=== PATIENT | female | born 1935 | race Caucasian/White ===

== ENCOUNTER → 2017-09-03 | Outpatient (CLI) | payer MEDICARE, OTHER ==
[~2017-09-03] MED LIST: ACIPHEX 20 MG T20 M1; ELAVIL; ESTRACE0.5 MG; IBUPROFEN 800800 MG PO; LORAZEPAM 0.50.5 MG PO; VIIBRYD10 MG PO
--- NOTE | 2017-09-03 15:22 | 2DMMODE ---
[place] [address] 2 D/M-MODE ECHOCARDIOGRAM Name: ASCENCION SANTANA Room: [facility]#: [id number] Admission: 09/03/17 Attend Phys: Shahida Saini, Discharge: Date of : 37 Date of Service: 09/03/17 1522 Report #: [id number] THIS REPORT FOR: //name// APPROVED REPORT Study performed: 09/03/2017 13:14:01 EXAM: Comprehensive 2D, Doppler, and color-flow Echocardiogram Patient Location: Out-Patient Status: routine BSA: 1.86 HR: 62 bpm Other Information Study Quality: Good Indications Aortic Valve Disease 2D Dimensions LVEF(%): 69.37 (>50%) IVSd: 11.56 (7-11mm) LVOT Diam: 20.38 (18-24mm) LVDd: 43.58 mm PWd: 9.98 (7-11mm) Ascending Ao: 24.72 (22-36mm) LVDs: 26.69 (25-40mm) Aortic Root: 28.85 mm Alvarado's LVEF: 69.37 % Volumes Left Atrial Volume (Systole) LA ESV Index: 25.90 mL/m2 Aortic Valve AoV Peak Addy.: 1.06 m/s AO Peak Gr.: 4.46 mmHg LVOT Max P.49 mmHg AO Mean Gr.: 2.22 mmHg LVOT Mean P.86 mmHg LVOT Max V: 0.61 m/s AO V2 VTI: 24.57 cm LVOT Mean V: 0.44 m/s CEDRICK (VTI): 2.00 cm2 LVOT V1 VTI: 15.05 cm AI Collier: 3.11 m/s2 AI PHT: 428.59 [place] [address] 2 D/M-MODE ECHOCARDIOGRAM Name: ASCENCION SANTANA Room: [facility]#: [id number] Admission: 09/03/17 Attend Phys: Shahida Saini, Discharge: Date of : 37 Date of Service: 09/03/17 1522 Report #: [id number] E/A Ratio: 2.20 MV Decel. Time: 165.76 ms MV E Max Addy.: 0.84 m/s MV PHT: 48.07 ms MVA (PHT): 4.58 cm2 TDI E/Lateral E': 7.64 E/Medial E': 7.64 Medial E' Addy.: 0.11 m/s Lateral E' Addy.: 0.11 m/s Pulmonary Valve PV Peak Addy.: 0.73 m/s PV Peak Gr.: 2.15 mmHg Tricuspid Valve TR Peak Gr.: 44.71 mmHg RVSP: 49.71 mmHg Left Ventricle The left ventricle is normal size. There is normal LV segmental wall motion. There is normal left ventricular wall thickness. Left ventricular systolic function is normal. The left ventricular ejection fraction is within the normal range. LVEF is 55-60%. The left ventricular diastolic function is normal. Right Ventricle The right ventricle is normal size. The right ventricular systolic function is normal. Atria The left atrium size is normal. The right atrium size is normal. Aortic Valve Mild aortic valve sclerosis. Mild to moderate aortic regurgitation. There is no aortic valvular stenosis. Mitral Valve The mitral valve is normal in structure. Mild to moderate mitral regurgitation. No evidence of mitral valve stenosis. Tricuspid Valve The tricuspid valve is normal in structure. Moderate tricuspid regurgitation. The RVSP is _49.7 mmHg. Pulmonic Valve The pulmonary valve is normal in structure. [place] [address] 2 D/M-MODE ECHOCARDIOGRAM Name: NEEMA SANTANACHANTEL Waldron Room: [facility]#: [id number] Admission: 09/03/17 Attend Phys: Shahida Saini, Discharge: Date of : 37 Date of Service: 09/03/17 1522 Report #: [id number] regurgitation. Great Vessels The aortic root is normal in size. IVC is normal in size and collapses with >50% inspiration Pericardium There is no pericardial effusion. <Conclusion> The left ventricle is normal size. There is normal left ventricular wall thickness. Left ventricular systolic function is normal. The left ventricular ejection fraction is within the normal range. LVEF is 55-60%. The left ventricular diastolic function is normal. The right ventricle is normal size. The left atrium size is normal. Mild aortic valve sclerosis. Mild to moderate aortic regurgitation. There is no aortic valvular stenosis. The mitral valve is normal in structure. Mild to moderate mitral regurgitation. No evidence of mitral valve stenosis. The tricuspid valve is normal in structure. Moderate tricuspid regurgitation. The RVSP is _49.7 mmHg. IVC is normal in size and collapses with >50% inspiration There is no pericardial effusion. There is normal LV segmental wall motion. <ELECTRONICALLY SIGNED> By: Morgan Abbott MD, FACC 09/03/17 1522 [id number] Morgan Abbott MD, FACC /INF
== END ==
LOC: M.CRD 12:44
DX: I08.3 Combined rheumatic disorders of mitral, aortic and tricuspid valves (principal)

== ENCOUNTER → 2017-12-24 | Outpatient (CLI) | payer MEDICARE, OTHER | LOC: M.RAD 10:48 | DX: Z12.31 Encounter for screening mammogram for malignant neoplasm of breast (principal); F32.9 Major depressive disorder, single episode, unspecified; Z78.0 Asymptomatic menopausal state; Z90.49 Acquired absence of other specified parts of digestive tract ==